=== PATIENT | female | born 1955 | race Asian ===

== ENCOUNTER → 2020-12-15 | Outpatient (CLI) | payer OTHER | LOC: HEART 5 15:05 | DX: R00.2 Palpitations (principal) ==

== ENCOUNTER → 2020-12-31 | Outpatient (CLI) | payer OTHER | LOC: KOH-I 09:59 | DX: M25.511 Pain in right shoulder (principal) | CPT/HCPCS: 73030 ==

== ENCOUNTER → 2021-02-18 | Outpatient (CLI) | payer OTHER | LOC: HEART 5 10:30 | DX: R00.1 Bradycardia, unspecified (principal); R94.31 Abnormal electrocardiogram [ECG] [EKG] | CPT/HCPCS: 93306 ==

== ENCOUNTER → 2021-07-05 | Outpatient (CLI) | payer OTHER | LOC: LAB 09:30 | DX: E87.5 Hyperkalemia (principal) | CPT/HCPCS: 36415; 84132 ==

== ENCOUNTER → 2021-08-24 | Outpatient (CLI) | payer OTHER | LOC: KOH-I 09:09 | DX: M54.2 Cervicalgia (principal); M25.50 Pain in unspecified joint; S12.600A Unspecified displaced fracture of seventh cervical vertebra, initial encounter for closed fracture | CPT/HCPCS: 72040; 73030; 73080 ==

== ENCOUNTER → 2021-08-31 | Outpatient (CLI) | payer OTHER | LOC: KOH-I 15:45 | DX: S12.9XXA Fracture of neck, unspecified, initial encounter (principal); M47.812 Spondylosis without myelopathy or radiculopathy, cervical region | CPT/HCPCS: 72141 ==